=== PATIENT | male | born 1995 ===

== ENCOUNTER 2019-02-26 14:54 | Emergency (ER) | payer MEDICAID ==
[2019-02-26 15:15] VITALS: BMI 21.7
[2019-02-26 15:17] VITALS: PULSE 69; RESP 18; O2SAT 99
--- NOTE | 2019-02-26 15:30 | ED PDOC ---
Arrival/HPI <SrinivassnehaCamilo lopez - Last Filed: 02/26/19 18:02> - General Historian: Patient - History of Present Illness Narrative History of Present Illness (Text): 02/26/19 15:28 Patient is a 23 year old male with no significant past medical history presenting for suture removal of sutures on his left eyebrow. Patient states that he was cleared to have sutures removed after 02/23/2019. Denies any bleeding or other drainage from the site. Denies fevers, chills, chest pain, shortness of breath, abdominal pain, diarrhea, dysuria. Time/Duration: 1 week Symptom Onset: Other Symptom Course: Improving Severity Level: Mild <Sajan Dukes L - Last Filed: 02/26/19 18:24> - General Chief Complaint: Suture/Staple Removal Time Seen by Provider: 02/26/19 14:56 Past Medical History - Provider Review Nursing Documentation Reviewed: Yes - Past History Past History: Non-Contributing <Sajan Dukes L - Last Filed: 02/26/19 18:24> Family/Social History - Physician Review Nursing Documentation Reviewed: Yes Family/Social History: No Known Family HX <Sajan Dukes L - Last Filed: 02/26/19 18:24> Allergies/Home Meds <Camilo Gamble - Last Filed: 02/26/19 18:02> <Sajan Dukes L - Last Filed: 02/26/19 18:24> Allergies/Adverse Reactions: Allergies No Known Allergies Allergy (Verified 02/26/19 15:16) Review of Systems - Physician Review All systems were reviewed & negative as marked: Yes - Review of Systems Constitutional: Normal Respiratory: Normal Cardiovascular: Normal Gastrointestinal: Normal <Sajan Dukes L - Last Filed: 02/26/19 18:24> Physical Exam Vital Signs Temp Pulse Resp BP Pulse Ox 02/26/19 15:16 69 18 99 02/26/19 15:02 98.5 F 69 18 118/73 98 <SrinivassnehajessicaCamilo - Last Filed: 02/26/19 18:02> Vital Signs Reviewed: Yes Vital Signs Pulse Resp Pulse Ox 02/26/19 15:16 69 18 99 Temperature: Afebrile Blood Pressure: Normal Pulse: Regular Respiratory Rate: Normal Appearance: Positive for: Well-Appearing, Comfortable Pain Distress: None Mental Status: Positive for: Alert and Oriented X 3 - Systems Exam Head: Present: Laceration (well healed, five stitches on left eyebrow ) Pupils: Present: PERRL Extroacular Muscles: Present: EOMI Conjunctiva: Present: Normal Mouth: Present: Moist Mucous Membranes Respiratory/Chest: Present: Clear to Auscultation, Good Air Exchange Cardiovascular: Present: Regular Rate and Rhythm, Normal S1, S2 Abdomen: Present: Normal Bowel Sounds. No: Tenderness Lower Extremity: Present: Normal Inspection Neurological: Present: GCS=15, CN II-XII Intact Skin: Present: Warm, Dry Psychiatric: Present: Alert, Oriented x 3, Normal Insight, Normal Concentration <Sajan Dukes - Last Filed: 02/26/19 18:24> Medical Decision Making ED Course and Treatment: In agreement with resident note, which includes further HPI details. Patient was seen and evaluated with resident, came up with plan and treatment together. 23 year old male presents for suture removal to this left eyebrow. Plan: -- Suture removal -- Reassess and disposition <Camilo Gamble - Last Filed: 02/26/19 18:02> ED Course and Treatment: 02/26/19 17:18 Impression: left eyebrow healed laceration Plan: - suture removal - reassess and disposition Progress Notes: Five stitches on left eyebrow removed. Patient tolerated procedure well with no complications. Patient was optimized for discharge and instructed to follow up with primary medical doctor within one week. <Sajan Dukes - Last Filed: 02/26/19 18:24> - Scribe Statement The provider has reviewed the documentation as recorded by the Sergio Jacobs Provider Scribe Attestation: All medical record entries made by the Scribmackenzie were at my direction and personally dictated by me. I have reviewed the chart and agree that the record accurately reflects my personal performance of the history, physical exam, medical decision making, and the department course for this patient. I have also personally directed, reviewed, and agree with the discharge instructions and disposition. <Camilo Gamble - Last Filed: 02/26/19 18:02> Disposition/Present on Arrival <Camilo Gamble - Last Filed: 02/26/19 18:02> - Present on Arrival Any Indicators Present on Arrival: No History of DVT/PE: No History of Uncontrolled Diabetes: No Urinary Catheter: No History of Decub. Ulcer: No History Surgical Site Infection Following: None - Disposition Have Diagnosis and Disposition been Completed?: Yes Disposition Time: 17:20 <Sajan Dukes - Last Filed: 02/26/19 18:24> - Disposition Diagnosis: Encounter for removal of sutures Disposition: HOME/ ROUTINE Condition: GOOD Discharge Instructions (ExitCare): Stitches Removal Print Language: [place] Additional Instructions: Please follow up in clinic Referrals: [facility] [place] [Outside] - Follow up with primary Reanna Patel MD [Medical Doctor] - Follow up with primary Forms: [facility] (Lithuanian), SCHOOL NOTE, WORK NOTE
[2019-02-26 15:49] VITALS: BP 118/73; TEMP 98.5
== END 2019-02-26 15:52 | disposition home or self-care (01) ==
LOC: ED 14:54
DX: Z48.02 Encounter for removal of sutures (principal)